=== PATIENT | male | born 1950 | race Caucasian/White ===

== ENCOUNTER → 2017-04-28 | Outpatient (CLI) | payer MEDICARE, BC | LOC: CT 10:30 | DX: R91.1 Solitary pulmonary nodule (principal); R91.8 Other nonspecific abnormal finding of lung field | CPT/HCPCS: 71260; J7050; Q9962 ==

== ENCOUNTER → 2017-05-06 | Outpatient (CLI) | payer MEDICARE, BC | LOC: KOH-I 10:00 → MRI 10:00 → KOH-I 11:37 | DX: D44.3 Neoplasm of uncertain behavior of pituitary gland (principal); N63 Unspecified lump in breast; N62 Hypertrophy of breast; R91.1 Solitary pulmonary nodule | CPT/HCPCS: 70553; A9577 ==

== ENCOUNTER → 2017-05-11 | Outpatient (CLI) | payer MEDICARE, BC | LOC: MAMO 10:35 | DX: N63 Unspecified lump in breast (principal) | CPT/HCPCS: 76641-RT; G0206 ==